=== PATIENT | female | born 1960 | race Two or more races ===

== ENCOUNTER 2017-10-22 13:30 | Outpatient (CLI) | payer OTHER | END 2017-10-22 15:00 | disposition home or self-care (01) | LOC: NUCLEAR 13:30 | DX: M81.0 Age-related osteoporosis without current pathological fracture (principal) ==

== ENCOUNTER 2020-03-28 14:27 | Outpatient (CLI) | payer OTHER | END 2020-03-28 14:37 | disposition home or self-care (01) | LOC: RAD 14:27 | PROVIDERS: ATTEND Orthopaedic Surgery | DX: M77.32 Calcaneal spur, left foot (principal); M25.571 Pain in right ankle and joints of right foot; M25.572 Pain in left ankle and joints of left foot ==

== ENCOUNTER 2020-08-26 09:38 | Outpatient (CLI) | payer OTHER | END 2020-08-26 09:51 | disposition home or self-care (01) | LOC: LAB 09:38 | PROVIDERS: ATTEND Specialist | DX: D50.8 Other iron deficiency anemias (principal); E83.51 Hypocalcemia; N39.0 Urinary tract infection, site not specified; E78.00 Pure hypercholesterolemia, unspecified; E03.8 Other specified hypothyroidism; D68.8 Other specified coagulation defects; Z01.810 Encounter for preprocedural cardiovascular examination; Z01.811 Encounter for preprocedural respiratory examination ==

== ENCOUNTER 2020-09-13 09:30 | Inpatient (IN) | payer OTHER ==
[~2020-09-13] VITALS: Ht 157.5 cm; Wt 66.7 kg
[2020-09-13] MEDS ORDERED: COZAAR50 MG PO (12:59)
[2020-09-13] MEDS ORDERED: PROTONIX40 M1 PO (13:00)
[2020-09-13] MEDS ORDERED: VITAMIN D3 PO (13:00)
[2020-09-20] MEDS ORDERED: VITAMIN D310 MC4 PO (15:02)
== END 2020-09-23 12:53 | disposition home or self-care (01) | DRG 743 ==
LOC: O/R 09-20 05:40 → OB/GYN 09-20 05:40 → O/R 09-20 15:56 → OB/GYN 09-20 16:05
PROVIDERS: ADMIT Specialist; ATTEND Specialist
PROC: 0UT20ZZ Resection of Bilateral Ovaries, Open Approach (ICD-10-PCS; 2020-09-20)
PROC: 0UT70ZZ Resection of Bilateral Fallopian Tubes, Open Approach (ICD-10-PCS; 2020-09-20)
PROC: 0UT90ZZ Resection of Uterus, Open Approach (ICD-10-PCS; principal; 2020-09-20 08:45)
DX: D25.0 Submucous leiomyoma of uterus (principal); D25.1 Intramural leiomyoma of uterus; D25.2 Subserosal leiomyoma of uterus; N80.0 Endometriosis of uterus; N72 Inflammatory disease of cervix uteri; N83.12 Corpus luteum cyst of left ovary; N83.11 Corpus luteum cyst of right ovary; N83.291 Other ovarian cyst, right side; I10 Essential (primary) hypertension